=== PATIENT | female | born 1965 ===

== ENCOUNTER 2020-11-21 05:44 | Inpatient (IN) | payer OTHER ==
[~2020-11-21] VITALS: Ht 149.9 cm; Wt 71.0 kg
[2020-11-21] MEDS: MIDAZOLAM 1 MG/ML, 2ML IVPush ONE ×2 (05:53→07:35)
[2020-11-21] MEDS ORDERED: PROPOFOL 100 ML IV ONE ×3 (05:54→20:50)
[2020-11-21] MEDS ORDERED: FENTANYL PF 100 MCG/2ML ONE (05:54)
[2020-11-21] MEDS: PROPOFOL 100 ML IV PRN ×2 (05:56→20:53)
[2020-11-21] MEDS ORDERED: FENTANYL PF 100 MCG/2ML IV ONE (06:00)
--- NOTE | 2020-11-21 06:04 | NUR ---
LAB AT BEDSIDE
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
[2020-11-21 06:16] LABS: MEAN CORPUSCULAR HEMOGLOBIN 27.6 pg (27.0-34.8); MEAN CORPUSCULAR HGB CONC 32.7 g/dL (32.4-35.8); MEAN PLATELET VOLUME 8.3 fL (7.4-10.4); PLATELET COUNT 322 x10^3/uL (130-400); RED BLOOD COUNT 5.35 x10^6/uL (3.82-5.3); RED CELL DISTRIBUTION WIDTH 14.3 % (9.6-15.2)
[2020-11-21 06:29] LABS: ALANINE AMINOTRANSFERASE 231 U/L (12-78); ALBUMIN 2.6 g/dL (3.4-5.0); ANION GAP 12 mmol/L (5-15); CALCIUM 7.2 mg/dL (8.5-10.1); CHLORIDE 106 mmol/L (98-107); CREATININE 0.99 mg/dL (0.55-1.02)
[2020-11-21 06:33] LABS: ALKALINE PHOSPHATASE 97 U/L (45-117); BILIRUBIN,TOTAL 0.3 mg/dL (0.2-1.0); TOTAL PROTEIN 6.7 g/dL (6.4-8.2)
[2020-11-21 06:35] LABS: TROPONIN I 0.555 ng/mL (0.000-0.045)
[2020-11-21 06:45] LABS: <PLATELET ESTIMATE> ADEQUATE; <PLT MORPHOLOGY> NORMAL PLT MORPH; <RBC MORPHOLOGY> NORMAL; BANDS%(MANUAL) 18 % (0-7); LYMPHS% (MANUAL) 7 % (22-44); MONOS% (MANUAL) 1 % (2-9); SEGS% (MANUAL) 74 % (42-75)
[2020-11-21] MEDS ORDERED: FUROSEMIDE 40 MG/4 ML IV ONE (07:00)
[2020-11-21] MEDS ORDERED: MEROPENEM 1 GM in SODIUM CHLORIDE 0.9% 100 ML IV ONE (07:00)
[2020-11-21] MEDS ORDERED: VANCOMYCIN PER PHARMACY MC PRN ×3 (07:00→08:43)
--- NOTE | 2020-11-21 07:09 | NUR ---
REPORT TO KATRIN BECKRAMP SERVICE AGENT OF CARE
[2020-11-21] MEDS ORDERED: MIDAZOLAM 1 MG/ML, 2ML ONE (07:16)
[2020-11-21] MEDS ORDERED: VANCOMYCIN 1,800 MG in SODIUM CHLORIDE 0.9% 250 ML IV ONE (07:30)
[2020-11-21] MEDS ORDERED: MIDAZOLAM 1 MG/ML, 5ML IVPush ONE (07:30)
--- NOTE | 2020-11-21 07:43 | NUR ---
CENTRAL LINE PERFORMED BY W/O INCIDENT. PT RESTING ON GURNEY W/ FAMILY AT BEDSIDE. AWAITING RESP FOR TRANSPORT TO CT.
[2020-11-21] MEDS ORDERED: FUROSEMIDE 40 MG/4 ML ONE (07:55)
--- NOTE | 2020-11-21 07:59 | NUR ---
SPOUSE TOOK POSSESSION OF PTS RINGS, WATCH AND GLASSES.
[2020-11-21] MEDS ORDERED: LORazepam 2 MG/ML, 1ML IVPush PRN (08:00)
[2020-11-21] MEDS ORDERED: BISACODYL 10 MG SUPP PR PRN (08:00)
[2020-11-21] MEDS ORDERED: morphine SULFATE 10 MG/ML, 1ML IVPush PRN (08:00)
[2020-11-21] MEDS: MEROPENEM 1 GM in SODIUM CHLORIDE 0.9% 100 ML IV SCH ×3 (08:00→23:56)
[2020-11-21] MEDS ORDERED: hydrALAzine 20 MG/ML, 1ML IVPush PRN (08:00)
[2020-11-21] MEDS ORDERED: ONDANSETRON 2MG/ML, 2ML IVPush PRN (08:00)
[2020-11-21] MEDS ORDERED: POLYETHYLENE GLYCOL 17 GM PACKET PO PRN (08:00)
[2020-11-21] MEDS ORDERED: OXYcodone IR 5MG TABLET PO PRN (08:00)
[2020-11-21] MEDS ORDERED: PROPOFOL 100 ML IV PRN ×2 (08:00→13:30)
[2020-11-21] MEDS ORDERED: LABETALOL 5MG/ML, 20ML IVPush PRN (08:00)
[2020-11-21] MEDS ORDERED: OMNIPAQUE 350 MG/ML, 100ML BOTTLE ONE (08:38)
[2020-11-21] MEDS: SENNA/DOCUSATE TABLET PO SCH (08:46)
--- NOTE | 2020-11-21 08:47 | NUR ---
PT TRANSFERED TO HOSPITAL BED W/O INCIDENT.
[2020-11-21 09:00] LABS: INTERNATIONAL NORMALIZED RATIO 1.01 (0.93-1.1); PROTHROMBIN TIME 10.8 Seconds (9.6-11.5)
[2020-11-21] MEDS: LACTATED RINGERS 1,000 ML IV SCH ×2 (09:03→18:41)
[2020-11-21] MEDS ORDERED: FAMOTIDINE 20 MG/2 ML ONE ×2 (09:44→21:40)
[2020-11-21] MEDS: FAMOTIDINE 20 MG/2 ML IVPush SCH ×2 (09:45→21:42)
--- NOTE | 2020-11-21 10:22 | NUR ---
EEG AT BEDSIDE.
--- NOTE | 2020-11-21 11:00 | NUR ---
EEG STILL AT BEDSIDE. VSS, NADN. AWAITING CCU ADMIT.
--- NOTE | 2020-11-21 11:13 | NUR ---
REPORT TO BETY BECK.
[2020-11-21] MEDS ORDERED: MIDAZOLAM HCL 50 MG in SODIUM CHLORIDE 0.9% 40 ML IV PRN (12:13)
[2020-11-21 12:20] LABS: TROPONIN I 0.929 ng/mL (0.000-0.045)
[2020-11-21] MEDS ORDERED: PHENYTOIN SODIUM 1,000 MG in SODIUM CHLORIDE 0.9% 100 ML IV ONE (12:30)
[2020-11-21] MEDS ORDERED: FILTER 0.22 MICRON IV ONE (12:30)
[2020-11-21] MEDS: LEVETIRACETAM 1,000 MG in SODIUM CHLORIDE 0.9% 100 ML IV SCH (12:58)
[2020-11-21] MEDS ORDERED: PHARMACOKINETIC CONSULTATION MC ONE (13:00)
[2020-11-21] MEDS ORDERED: PHARMACOKINETIC MONITORING MC PRN (13:00)
[2020-11-21] MEDS ORDERED: NOREPINEPHRINE 8 MG in SODIUM CHLORIDE 0.9% 242 ML IV PRN (13:30)
[2020-11-21] MEDS ORDERED: GLUCAGON 1 MG IM PRN (13:30)
[2020-11-21] MEDS ORDERED: LIDOCAINE-MPF 1%, 2ML ENDO PRN (13:30)
[2020-11-21] MEDS ORDERED: DEXTROSE 4 GM TAB.CHEW PO PRN (13:30)
[2020-11-21] MEDS ORDERED: DEXTROSE 50%, 50ML SYRINGE IVPush PRN (13:30)
[2020-11-21] MEDS ORDERED: PLEASE ENTER HEIGHT MC SCH (13:30)
[2020-11-21] MEDS ORDERED: PHARMACY MAY ADJ FOR RENAL FX MC SCH (13:30)
[2020-11-21] MEDS: INSULIN LISPRO 100 UNITS/ML, PEN SQ-INSULIN SCH ×3 (15:31→21:00)
[2020-11-21 15:56] LABS: MICROSCOPIC NOT IND
[2020-11-21 16:10] LABS: AMPHETAMINE SCREEN, URINE Negative (Negative); BARBITURATE SCREEN, URINE Negative (Negative); BENZODIAZEPINE SCREEN, URINE Positive (Negative); CANNABINOID SCREEN, URINE Negative (Negative); COCAINE SCREEN, URINE Negative (Negative); METHADONE SCREEN, URINE Negative (Negative); OPIATE SCREEN, URINE Negative (Negative)
[2020-11-21] MEDS ORDERED: INSULIN LISPRO SINGLE DOSE, ER SQ-INSULIN ONE (16:37)
--- NOTE | 2020-11-21 19:40 | NUR ---
Report from CCU RN. This RN to assume care. Patient maintaining well on current vent settings: PEEP 5 50% O2 400mL TV 20 RR Addendum: 11/22/20 at 0206 by [email or web address] correction; 60% O2
[2020-11-21] MEDS: VANCOMYCIN 1,400 MG in SODIUM CHLORIDE 0.9% 250 ML IV SCH (20:56)
[2020-11-22] MEDS: LEVETIRACETAM 1,000 MG in SODIUM CHLORIDE 0.9% 100 ML IV SCH ×2 (01:20→13:58)
--- NOTE | 2020-11-22 02:06 | NUR ---
THIS RN WAS LOOKING AT WRONG READING ON VENTILATOR AND CHARTING OXYGEN PERCENTAGE AT 50 WHEN IN FACT OXYGEN PERCENTAGE WAS AT 60, THIS RN WENT BACK AND CHANGED ALL OXYGEN CHARTING TO THE CORRECT READING AT 60%
[2020-11-22] MEDS ORDERED: PROPOFOL 100 ML IV ONE ×3 (02:20→12:02)
[2020-11-22] MEDS: PROPOFOL 100 ML IV PRN (02:21)
--- NOTE | 2020-11-22 02:21 | NUR ---
Propofol bottle changed; infusion continued at previous rate.
[2020-11-22] MEDS ORDERED: LORazepam 2 MG/ML, 1ML ONE (02:27)
--- NOTE | 2020-11-22 02:30 | NUR ---
Break RN: patient having tremulous activity. Medicated patient per may.
[2020-11-22] MEDS: LACTATED RINGERS 1,000 ML IV SCH (04:10)
--- NOTE | 2020-11-22 04:27 | NUR ---
Nasim reyna in [facility] - 11/22/20 at 0428 by SIDNEY PTS HEART RATE HAS BEEN INCREASING SINCE THE START OF THIS RNS SHIFT, THIS RN CALLED SPECIAL TECHNICAL OPERATIONS OFFICER TO SEE IF THERE SHOULD BE ANY CAUSE FOR PAUSE, SPECIAL TECHNICAL OPERATIONS OFFICER STATED THAT SHE WOULD COME DOWN IN AN HOUR TO REASSESS
--- NOTE | 2020-11-22 04:29 | NUR ---
PTS HEART RATE HAS BEEN INCREASING SINCE THE START OF THIS RNS SHIFT, THIS RN CALLED FORENSIC MANAGER TO SEE IF THERE SHOULD BE ANY CAUSE FOR PAUSE, FORENSIC MANAGER STATED THAT SHE WOULD COME DOWN IN AN HOUR TO REASSESS
--- NOTE | 2020-11-22 04:49 | NUR ---
RN: ADVERTISING REP ASSISTED IN PLACING XRAY BOARD BEHIND PT, AND TOWEL ROLL REMOVED AND PT LYING FLAT ON HER BACK. PT BEGAN COUGHING DURING MOVEMENT AND PT ETT SUCTIONED WITH LARGE RAYGOZA SECRETIONS CLEARED. PT CALMED DOWN AFTER, AND REMAINS IN SUPINE POSITION AT THIS TIME. ETT SECURE. GOOD AERATION AND OXYGENATION.
[2020-11-22 05:22] LABS: CHLORIDE 107 mmol/L (98-107)
--- NOTE | 2020-11-22 05:26 | NUR ---
EDGE INKER UPPERS CAME DOWN TO SEE PT, EDGE INKER UPPERS STATED THAT AFTER THIS BAG OF FLUIDS WERE DONE THEN WE ARE TO HOLD NEXT BACK UNTIL ECHO IS COMPLETED AND RESULTED
[2020-11-22 05:33] LABS: ALANINE AMINOTRANSFERASE 136 U/L (12-78); ALBUMIN 2.5 g/dL (3.4-5.0); ALKALINE PHOSPHATASE 65 U/L (45-117); BILIRUBIN,TOTAL 0.4 mg/dL (0.2-1.0); CALCIUM 7.2 mg/dL (8.5-10.1); CREATININE 0.58 mg/dL (0.55-1.02)
[2020-11-22 05:40] LABS: ANION GAP 10 mmol/L (5-15)
[2020-11-22] MEDS ORDERED: POTASSIUM CHLORIDE 40 MEQ in SODIUM CHLORIDE 0.9% 100 ML IV ONE (06:00)
[2020-11-22 06:14] LABS: MEAN CORPUSCULAR HEMOGLOBIN 27.5 pg (27.0-34.8); MEAN CORPUSCULAR HGB CONC 33.6 g/dL (32.4-35.8); MEAN PLATELET VOLUME 8.6 fL (7.4-10.4); PLATELET COUNT 235 x10^3/uL (130-400); RED BLOOD COUNT 4.86 x10^6/uL (3.82-5.3); RED CELL DISTRIBUTION WIDTH 14.2 % (9.6-15.2)
[2020-11-22 06:48] LABS: BAND#(MANUAL) 1.02 x10^3/uL; BANDS%(MANUAL) 4 % (0-7); LYMPH#(MANUAL) 1.28 x10^3/uL (1-3.4); LYMPHS% (MANUAL) 5 % (22-44); MONOS#(MANUAL) 0.51 x10^3/uL (0.3-2.7); MONOS% (MANUAL) 2 % (2-9); SEGS% (MANUAL) 89 % (42-75)
[2020-11-22 06:49] LABS: <PLATELET ESTIMATE> ADEQUATE; <PLT MORPHOLOGY> NORMAL PLT MORPH; <RBC MORPHOLOGY> NORMAL
--- NOTE | 2020-11-22 06:56 | NUR ---
Took report from Lj Edouard RN, assume care at this time.
--- NOTE | 2020-11-22 07:34 | NUR ---
Urine total out over night 400ml
--- NOTE | 2020-11-22 08:13 | NUR ---
Pt calm, rt in room for oral care. Pt turned for comfort. NAD
--- NOTE | 2020-11-22 08:15 | NUR ---
Pt in bed with cont registered nurse cardiac telemetry, spo2, bp q 30 min, side rails up x2 (in hospital bed), cont etco2 at (17), bp q 15 min. pt intubated with 8.0 tube at 50% rr 21 peep of 5. portillo cath in place, no new urine to report. 18g iv in left hand assessed, right triple lumen assed, no issues, dressing clean. nad
[2020-11-22] MEDS: VANCOMYCIN 1,400 MG in SODIUM CHLORIDE 0.9% 250 ML IV SCH (09:00)
--- NOTE | 2020-11-22 09:54 | NUR ---
FAMILY AT BEDSIDE, ALL QUESTIONS ANSWERED. [employer] CALLED, #[phone]
[2020-11-22] MEDS: SENNA/DOCUSATE TABLET PO SCH (10:24)
[2020-11-22] MEDS: SODIUM CHLORIDE FLUSH 10ML SYR IVF SCH ×2 (10:27→11:11)
[2020-11-22] MEDS: INSULIN LISPRO 100 UNITS/ML, PEN SQ-INSULIN SCH ×2 (11:06→11:10)
--- NOTE | 2020-11-22 11:12 | NUR ---
[facility]-NURSING COMMUNICATION FORM SENT FOR MEDS
[2020-11-22] MEDS ORDERED: GADOTERATE 7.5 MMOL/15ML SYR ONE (12:50)
--- NOTE | 2020-11-22 13:53 | NUR ---
PT BACK FROM MRI. MD IVORY AT BEDSIDE TALKING TO FAMILY ABOUT POC. FAMILY MADE THE DECISION TO PURSUE COMFORT CARE.
[2020-11-22] MEDS: MEROPENEM 1 GM in SODIUM CHLORIDE 0.9% 100 ML IV SCH (13:58)
[2020-11-22] MEDS: FAMOTIDINE 20 MG/2 ML IVPush SCH (13:58)
--- NOTE | 2020-11-22 13:59 | NUR ---
ORDERS HELD PER MD DIANELYS LOZ[facility] NETWORK IN ROOM AT THIS TIME
[2020-11-22] MEDS ORDERED: LORazepam 2 MG/ML, 1ML IV ONE (14:30)
[2020-11-22] MEDS ORDERED: MORPHINE SULFATE 4 MG/ML, 1ML IV ONE (14:30)
[2020-11-22] MEDS ORDERED: ONDANSETRON 2MG/ML, 2ML IVPush PRN (14:30)
[2020-11-22 15:04] VITALS: BP 105/55
[2020-11-22] MEDS: MORPHINE 30MG/30ML PCA.SYR IV PRN ×2 (16:35→17:37)
[2020-11-22] MEDS: ATROPINE OPHTH SOLN 1%, 5ML PO PRN ×3 (17:44→23:28)
[2020-11-22] MEDS ORDERED: SCOPOLAMINE 1MG PATCH TD ONE (18:00)
[2020-11-22] MEDS: morphine SULFATE 100 MG in DEXTROSE 5% 90 ML IV PRN (19:50)
[2020-11-23] MEDS: ATROPINE OPHTH SOLN 1%, 5ML PO PRN (02:46)
[2020-11-23] MEDS: morphine SULFATE 100 MG in DEXTROSE 5% 90 ML IV PRN (03:07)
== END 2020-11-23 10:00 | DRG 871 ==
LOC: ED 06:05 → EDIP 09:36 → 4NW 11-22 17:18
PROVIDERS: ADMIT Internal Medicine; ATTEND Internal Medicine
PROC: 02H633Z Insertion of Infusion Device into Right Atrium, Percutaneous Approach (ICD-10-PCS; principal; 2020-11-21)
PROC: B543ZZA Ultrasonography of Right Jugular Veins, Guidance (ICD-10-PCS; 2020-11-21)
PROC: 5A1945Z Respiratory Ventilation, 24-96 Consecutive Hours (ICD-10-PCS; 2020-11-21)
PROC: 0BH17EZ Insertion of Endotracheal Airway into Trachea, Via Natural or Artificial Opening (ICD-10-PCS; 2020-11-21)
PROC: 0T9B70Z Drainage of Bladder with Drainage Device, Via Natural or Artificial Opening (ICD-10-PCS; 2020-11-21)
PROC: 5A12012 Performance of Cardiac Output, Single, Manual (ICD-10-PCS; 2020-11-21)
PROC: 4A00X4Z Measurement of Central Nervous Electrical Activity, External Approach (ICD-10-PCS; 2020-11-21)
DX: A41.9 Sepsis, unspecified organism (principal); I21.4 Non-ST elevation (NSTEMI) myocardial infarction; G93.41 Metabolic encephalopathy; J96.00 Acute respiratory failure, unspecified whether with hypoxia or hypercapnia; K72.00 Acute and subacute hepatic failure without coma; J18.9 Pneumonia, unspecified organism; G93.1 Anoxic brain damage, not elsewhere classified; Z99.11 Dependence on respirator [ventilator] status; M62.82 Rhabdomyolysis; E88.09 Other disorders of plasma-protein metabolism, not elsewhere classified; G25.3 Myoclonus; I10 Essential (primary) hypertension; I46.9 Cardiac arrest, cause unspecified; J32.9 Chronic sinusitis, unspecified; R73.9 Hyperglycemia, unspecified
CPT/HCPCS: 36600; 70450; 70553; 71045; 71275; 80053; 80307; 81003; 82550; 82803; 82962; 83690; 83735; 83880; 84100; 84443; 84478; 84484; 85025; 85610; 87040; 87070; 87205; 93005; 94002; 94003; 95816; 96374; 96375; 99285; G0378; J1165; J1940; J1953; J2060; J2185; J2250; J2270; J2704; J3010; J3370; J3480; Q9967; A9575; J7050; J7120